=== PATIENT | female | born 1970 | race Caucasian/White ===

== ENCOUNTER 2020-07-16 19:50 | Emergency (ER) | payer BC ==
[2020-07-16 20:05] VITALS: BP 136/72
--- NOTE | 2020-07-16 21:57 | ER Document Report ---
ED Neck/Back Problem - General Chief Complaint: Back Injury Stated Complaint: FELL ON BUTT/NAUSEA/DISSINESS Time Seen by Provider: 07/16/20 21:48 Primary Care Provider: [facility] [Provider Group] - Follow up as needed Mode of Arrival: Ambulatory Information source: Patient - HPI Patient complains to provider of: Pain, Lower back Notes: Patient here with complaints of left buttock and low back pain. The patient states she was jumping rope when she lost her balance and fell backwards and landed on the foot of a dumbbell rack. She complains of pain mainly in the left glutes. She denies any bowel or bladder dysfunction. No blood thinners. No abdominal pain. She had some nausea earlier, this has resolved. No vomiting or diarrhea. No dysuria or hematuria. No chest pain or shortness of breath. No numbness, tingling, weakness. No loss of bowel or bladder dysfunction. No IV drug use. No fevers. No rash. Pain is constant, moderate, worse with sitting and movement, better with certain positions and rest. No other complaints, no other injuries. Past Medical History - Social History Smoking Status: Never Smoker Frequency of alcohol use: None Drug Abuse: None Family History: Reviewed & Not Pertinent Review of Systems - Review of Systems -: Yes All other systems reviewed and negative Physical Exam - Vital signs Vitals: Temp Pulse Resp BP Pulse Ox 97.8 F 72 16 136/72 H 100 07/16/20 20:03 07/16/20 20:03 07/16/20 20:03 07/16/20 20:03 07/16/20 20:03 - Notes Notes: GENERAL: alert, cooperative, nontoxic, no distress. HEAD: normocephalic, atraumatic EYES: conjunctiva pink without discharge, no external redness or swelling. EARS: no external swelling, no external redness NOSE: atraumatic, no external swelling MOUTH/THROAT: mucous membranes moist and pink, posterior pharynx without erythema, swelling, exudate. No trismus or drooling. NECK: soft, supple, full range of motion, no meningismus. CHEST: no distress, lungs clear and equal throughout. No wheezing, rales, rhonchi. CARDIAC: regular rate and rhythm, no murmur, normal capillary refill, normal pulses. No peripheral edema noted. ABDOMEN: soft, nontender, no pusatile mass. BACK: No CVA tenderness. Slight decreased range of motion secondary to low back pain. Tenderness to palpation of the left SI joint and left glutes. No midline tenderness, step-offs or crepitus to the lumbar spine. EXTREMITIES: full range of motion of all extremities. No redness, no swelling. NEURO: alert and oriented A&O x 3, no focal deficits, full range of motion of all extremities. 5 out of 5 flexion and extension of the lower extremities bilaterally. Patellar and Achilles deep tendon reflexes are +2 bilaterally. Normal sensation with no saddle anesthesia. Patient can dorsiflex the great toe s bilaterally. PYSCH: appropriate mood, affect. Patient is cooperative. SKIN: pink, warm, dry, no rash. Course - Re-evaluation Re-evalutation: 07/16/20 23:06 Patient resting comfortably this time. Have gone over results with the patient. Questions answered. Will discharge home. Patient is nontoxic-appearing with stable vitals. Here with complaints of left buttock pain after she was jumping rope, lost her balance and fell. She landed on the foot of a dumbbell rack causing pain. No sign or risk of cauda equina, epidural abscess/bleed, discitis, osteomyelitis, pyelonephritis, AAA. She has some tenderness to palpation of the left gluteus and left hip. She has a nonfocal neurological exam. No deficits. No signs of infection. X-rays of the lumbar spine and the left hip show degenerative changes with no acute fracture. Patient will be discharged home with a prescription for Voltaren and Zanaflex. Instructions to apply ice to the sore area. Follow-up if not better in 1 week, sooner for worsening pain, fever, numbness, tingling, weakness, bowel or bladder dysfunction, or any further concerns. The patient's emergency department workup and current diagnosis were explained to the patient and or family. Follow-up instructions were provided. Medications if prescribed were discussed. Instructions for when to return to the emergency department including specific worrisome symptoms were discussed with the patient and/or family. - Vital Signs Vital signs: Temp Pulse Resp BP Pulse Ox 97.8 F 72 16 136/72 H 100 07/16/20 20:03 07/16/20 20:03 07/16/20 20:03 07/16/20 20:03 07/16/20 20:03 - Laboratory Results Critical Laboratory Results Reviewed: No Critical Results - Radiology Results Critical Radiology Results Reviewed: No Critical Results Discharge - Discharge Clinical Impression: Contusion, buttock Qualifiers: Encounter type: initial encounter Qualified Code(s): S30.0XXA - Contusion of lower back and pelvis, initial encounter Condition: Stable Disposition: HOME, SELF-CARE Instructions: Contusion ([facility]), Ice Packs ([facility]), Low Back Pain ([facility]) Additional Instructions: Take medications as prescribed. Apply ice to the sore area. Follow-up if not better in 1 week, sooner for worsening pain, fever, numbness, tingling, weakness, bowel or bladder dysfunction, or any further concerns. Prescriptions: Diclofenac Sodium [Voltaren 50 Mg Yuval.] 50 mg PO BID #20 tablet. Tizanidine HCl [Zanaflex 4 Mg Tablet] 4 mg PO BID PRN #10 tablet PRN Reason: Referrals: [facility] [Provider Group] - Follow up as needed
--- NOTE | 2020-07-16 22:54 | RADIOLOGY REPORT (SQ) ---
EXAM DESCRIPTION: XR HIP 2 OR MORE VIEWS COMPLETED DATE/TME: 07/16/2020 22:12 CLINICAL HISTORY: 49 years, Female, fall, p0ain COMPARISON: None. NUMBER OF VIEWS: 2 TECHNIQUE: AP pelvis, single view left hip LIMITATIONS: None. FINDINGS: No radiographic evidence for acute fracture or dislocation. Degenerative change of the hips bilaterally. Well-defined sclerotic focus in the intertrochanteric region of the left femur measuring 3.0 x 2.2 cm likely reflects bone island in the absence of cancer history. Phleboliths in the pelvis. IMPRESSION: Degenerative changes. No acute fracture. copyright 2010 [employer]- All Rights Reserved
--- NOTE | 2020-07-16 23:00 | RADIOLOGY REPORT (SQ) ---
EXAM DESCRIPTION: XR LUMBAR SPINE ANTEROPOSTERIOR, LATERAL, AND OBLIQUES COMPLETED DATE/TME: 07/16/2020 22:12 CLINICAL HISTORY: 49 years, Female, fall, pain COMPARISON: None. NUMBER OF VIEWS: 5 TECHNIQUE: 5 views of the lumbar spine were obtained LIMITATIONS: None. FINDINGS: There is no evidence of fracture or subluxation. No pars defect is seen. There is mild marginal osteophyte formation within the lower thoracic spine and at the L2-3 and L3-4 levels. No significant disc space narrowing is seen. IMPRESSION: Mild spondylosis. copyright 2010 [employer]- All Rights Reserved
[2020-07-16] MEDS ORDERED: KETOROLAC TROMETHAMINE INJ/PF 30 MG/1 ML SDV IM ONE (23:21)
--- OUTSIDE RECORDS SUMMARY | 2020-07-16 23:47 | XMS REPORT ---
:1970 Author Organization [facility] Address [facility] [place] [address] [place] [id number] Care Team Providers Name Role Phone Daija WATSON, MS, Mrs Attending Clinician Daija WATSON, MS, Mrs Unavailable Allergies, Adverse Reactions, Alerts This patient has no known allergies or adverse reactions. Medications Ordered Filled Start Stop Current Ordering Indication Dosage Frequency Signature Comments Components Medication Medication Date Date Medication? Clinician (SIG) Name Name Evening Yes qhs [place] Oil 1000 MG Nystatin Yes 1 (Topical) applicatio 520754 n UNIT/GM topically to affected area 2 times per day Bupropion Yes HCl 150 MG Trazodone Yes Take 1 HCl 50 MG tablet (50 mg) by mouth daily at bedtime as needed for sleep Fluconazole Yes Take 1 150 MG tablet (150 mg) by mouth one time, then repeat dose in 4 days. dextroamphe No dextroamph tamine-amph etamine-am etamine ER phetamine 20 mg 24hr ER 20 mg capsule,ext 24hr end release capsule,ex tend release montelukast No montelukas 10 mg t 10 mg tablet tablet nystatin No nystatin 100,000 100,000 unit/gram unit/gram topical topical ointment ointment oxcarbazepi No oxcarbazep ne 300 mg ine 300 mg tablet tablet trazodone No trazodone trazodone No trazodone 50 mg 50 mg tablet tablet bupropion No bupropion HCl XL 150 HCl XL 150 mg 24 hr mg 24 hr tablet, tablet, extended extended release release bupropion No bupropion HCl XL 300 HCl XL 300 mg 24 hr mg 24 hr tablet, tablet, extended extended release release dextroamphe No dextroamph tamine-amph etamine-am etamine 20 phetamine mg tablet 20 mg tablet Biotin 5 MG Yes daily Montelukast Yes Take 1 Sodium 10 tablet (10 MG mg) by mouth daily Bupropion Yes one qam HCl 300 MG Oxcarbazepi Yes 2 qhs ne 300 MG Amphetamine Yes Take 1 -Dextroamph capsule etamine 20 (20 mg) by MG mouth daily in the morning Cyanocobala Yes daily min 100 MCG Crisaborole No 1 2 % 10-21 applicatio 04:00 n :00 topically to affected area 2 times per day Black Cohosh 09-24 (Cimicifuga 04:00 racemosa) :00 160 MG Problems Condition Condition Condition Status Onset Resolution Last Treatin g Comments Name Details Category Date Date Treatment Clinician Date Obesity Obesity Diagnosis Active Droberg, Lili Allergic Allergic Diagnosis Active Droberg, disposition disposition Lili Eruption Eruption Diagnosis Active Droberg, Lili Menopausal Menopausal Diagnosis Active Droberg, flushing flushing Lili Raised TSH Raised TSH Diagnosis Active Droberg, level level Lili Bipolar Bipolar Diagnosis Active Droberg, disorder disorder Lili Disturbance Disturbance Diagnosis Active Drober g, of of Lili attention attention Candidiasis Candidiasis Diagnosis Active Drober g, of skin of skin Lili Adjustment Adjustment Diagnosis Active Droberg, disorder disorder Lili Adult Adult Diagnosis Complet 2019-09-25 [facility] ed 00:00:00 Lili examination examination Procedures Procedure Date / Time Performed Performing Clinician Geoffrey perkins Documentation of current 2019-12-24 00:00:00 Lili Choe medications (procedure) Documentation of current 2019-11-23 00:00:00 Lili Choe medications (procedure) Documentation of current 2019-10-22 00:00:00 Lili Choe medications (procedure) Documentation of current 2019-09-25 00:00:00 Felix Choeca medications (procedure) Depression screening using PHQ-9 2019-03-15 04:00:00 Lottie Choe (Patient Health Questionnaire 9) score Assessment using generalized 2019-03-15 04:00:00 Enedelia Choe anxiety disorder 7 item score Screening for malignant neoplasm of 2019-03-15 04:00:00 Lili Choe vagina Screening for malignant neoplasm of 2019-03-15 04:00:00 Lili Choe breast Laboratory data interpretation 2019-03-15 04:00:00 Argenis Choe cca Documentation of current 2019-03-15 00:00:00 Lili Choe medications (procedure) Documentation of current 2019-03-08 00:00:00 Lili Choe medications (procedure) Hysterectomy Results Test Description Test Time Test Comments Text Results Atomic Results Result Comments SARS-CoV-2 RNA Resp Ql ARABELLA+probe 2020-04-28 00:00:00 Test Item Value Reference Range Comments SARS-CoV-2 RNA Resp Ql ARABELLA+probe Not detected [facility] Case ID: (test code = 49602-3) [id number] Microscopic [id number] 08:33:00 Test Item Value Reference Range Comments Microscopic observation (test code = 90167-6) . [id number] 08:33:00. 2019-03-20 Final [facility] [address] [id number]:2019-03-20 08:33:00Note: 2019-03-20 Final [facility] [place] [address] [place] [address] [id number] 08:33:00Cytologist 2019-03-20 Final [facility] [address] [id number] ICD [id number] 08:33:00Diagnosis ICD code 2019-03-20 [facility] [address] [place] [address] [id number] of hzzvxbkd1636-30-12 08:33:00Statement of adequacy 2019-03-20 Final [facility] [address] [id number] CYTOLOGY [id number] 08:33:00CYTOLOGY REPORT 2019-03-20 Final [facility] [address] [id number] [id number] 04:20:00 Test Item Value Reference Range Comments Nuclear Ab (test code = 8061-4) Negative 0-0 Qlojuidmlgbfvw0616-01-40 21:24:00 Test Item Value Reference Range Comments Interpretation (test code = 548523) Note PDF [id number] 21:18:00 Test Item Value Reference Range Comments PDF Image (test code = 564572) . C reactive izhqgak3858-07-09 20:58:00 Test Item Value Reference Range Comments C reactive protein (test code = 1988-5) 4 mg/L 0-0 Zmgfzwpfiar3827-35-11 20:10:00 Test Item Value Reference Range Comments Thyrotropin (test code = 32998-1) 5.100 uIU/mL 0-0 Thyroxine.ucif5492-51-49 20:10:00 Test Item Value Reference Range Comments Thyroxine.free (test code = 3024-7) 1.41 ng/dL 0-0 Cholesterol.total/Cholesterol.in [id number] 19:49:00 Test Item Value Reference Range Comments Cholesterol.total/Cholesterol.in HDL (test code = 3.3 ratio 0-0 9830-1) Cholesterol.in [id number] 19:49:00 Test Item Value Reference Range Comments Cholesterol.in LDL (test code = 40892-2) 71 mg/dL 0-0 [id number] 19:49:00 Test Item Value Reference Range Comments Cholesterol (test code = 2093-3) 118 mg/dL 0-0 LABORATORY [id number] 19:49:00LABORATORY COMMENT 2019-03-12 Not available [facility] [address] [id number].in VLDL 2019-03-12 19:47:00 Test Item Value Reference Range Comments Cholesterol.in VLDL (test code = 28672-5) 11 mg/dL 0-0 Nwwqcrpuvdru1673-35-88 19:47:00 Test Item Value Reference Range Comments Triglyceride (test code = 2571-8) 55 mg/dL 0-0 Cholesterol.in [id number] 19:45:00 Test Item Value Reference Range Comments Cholesterol.in HDL (test code = 2085-9) 36 mg/dL 0-0 GRANULOCYTES.[id number] 19:45:00 Test Item Value Reference Range Comments GRANULOCYTES.IMMATURE (test code = 82654-7) 0.0 x10E3/uL 0-0 GRANULOCYTES.IMMATURE/100 [id number] 19:45:00 Test Item Value Reference Range Comments GRANULOCYTES.IMMATURE/100 LEUKOCYTES (test code = 0 % 0-0 66182-7) Bvuuuaxjs7101-30-22 19:45:00 Test Item Value Reference Range Comments Basophils (test code = 704-7) 0.0 x10E3/uL 0-0 Slebsshjzde5021-77-59 19:45:00 Test Item Value Reference Range Comments Eosinophils (test code = 711-2) 0.2 x10E3/uL 0-0 Szmwvtcgc0245-84-01 19:45:00 Test Item Value Reference Range Comments Monocytes (test code = 742-7) 0.3 x10E3/uL 0-0 Ytqxpxtizli5277-32-38 19:45:00 Test Item Value Reference Range Comments Lymphocytes (test code = 731-0) 1.5 x10E3/uL 0-0 [id number] 19:45:00 Test Item Value Reference Range Comments Neutrophils (test code = 751-8) 3.0 x10E3/uL 0-0 Basophils/100 ynasemakdn8202-01-32 19:45:00 Test Item Value Reference Range Comments Basophils/100 leukocytes (test code = 706-2) 0 % 0-0 Eosinophils/100 fciqdntiiy9517-29-74 19:45:00 Test Item Value Reference Range Comments Eosinophils/100 leukocytes (test code = 713-8) 4 % 0 -0 Monocytes/100 cjkaknogqc6583-56-38 19:45:00 Test Item Value Reference Range Comments Monocytes/100 leukocytes (test code = 5905-5) 6 % 0- 0 Lymphocytes/100 eeqmuhntgr8950-06-18 19:45:00 Test Item Value Reference Range Comments Lymphocytes/100 leukocytes (test code = 736-9) 30 % 0 -0 Neutrophils/100 oavvarhwnm5829-18-92 19:45:00 Test Item Value Reference Range Comments Neutrophils/100 leukocytes (test code = 770-8) 60 % 0 -0 Yrqwajmre2289-46-99 19:45:00 Test Item Value Reference Range Comments Platelets (test code = 777-3) 189 x10E3/uL 0-0 Erythrocyte distribution jnnlp9911-77-55 19:45:00 Test Item Value Reference Range Comments Erythrocyte distribution width (test code = 788-0) 13.7 % 0-0 Erythrocyte mean corpuscular hemoglobin msubqrbhag4519-35-82 19:45:00 Test Item Value Reference Range Comments Erythrocyte mean corpuscular hemoglobin concentrat 32.5 g/dL 0-0 (test code = 786-4) Erythrocyte mean corpuscular cjsyjxecan9991-34-79 19:45:00 Test Item Value Reference Range Comments Erythrocyte mean corpuscular hemoglobin (test code = 28.8 pg 0-0 785-6) Erythrocyte mean corpuscular [id number] 19:45:00 Test Item Value Reference Range Comments Erythrocyte mean corpuscular volume (test code = 89 fL 0-0 787-2) Xvetrgajqr3486-36-19 19:45:00 Test Item Value Reference Range Comments Hematocrit (test code = 4544-3) 39.7 % 0-0 [id number] 19:45:00 Test Item Value Reference Range Comments Hemoglobin (test code = 718-7) 12.9 g/dL 0-0 Hjyldotsbvrq1889-13-72 19:45:00 Test Item Value Reference Range Comments Erythrocytes (test code = 789-8) 4.48 x10E6/uL 0-0 Ejrruzsilh1208-02-76 19:45:00 Test Item Value Reference Range Comments Leukocytes (test code = 6690-2) 5.0 x10E3/uL 0-0 Cgykfjmiqu0666-26-35 19:45:00Morphology 2019-03-12 Not available [facility] [address] [id number].nucleated/100 ingmoehogg0075-12-98 19:45:00Erythrocytes.nucleated/100 leukocytes 2019-03-12 Not available [facility] [address] [id number] Immature Ksvhm5519-01-02 19:45:00Immature Cells 2019-03-12 Not available [facility] [address] [id number] Assessments Condition Name Status Diagnosis Date Treating Clinici an Candidiasis of skin Active 2019-12-24 20:58:33 Obesity Active 2019-12-24 20:58:42 Disturbance of attention Active 2019-12-24 20:58:37 Adjustment disorder Active 2019-12-25 14:19:53 Panniculitis Active 2019-12-18 16:21:12 Cosmetic surgery Active 2019-12-18 16:21:16 Candidiasis of skin Active 2019-12-24 20:58:33 Obesity Active 2019-12-24 20:58:42 Disturbance of attention Active 2019-12-24 20:58:37 Bipolar disorder Active 2019-11-26 20:41:06 Adjustment disorder Active 2019-12-25 14:19:53 Candidiasis of skin Active 2019-12-24 20:58:33 Obesity Active 2019-12-24 20:58:42 Disturbance of attention Active 2019-12-24 20:58:37 Obesity Active 2019-12-24 20:58:42 Disturbance of attention Active 2019-12-24 20:58:37 Bipolar disorder Active 2019-11-26 20:41:06 Eruption Active 2019-03-15 19:03:31 Raised TSH level Active 2019-03-15 12:23:18 Obesity Active 2019-12-24 20:58:42 Adult health examination Active 2019-09-25 18:34:16 Menopausal flushing Active 2019-03-12 02:10:28 Eruption Active 2019-03-15 19:03:31 Obesity Active 2019-12-24 20:58:42 Allergic disposition Active 2019-03-12 02:09:32 Encounters Start End Encounter Admission Attending Care Care Encounter Date/Time Date/Time Type Type Clinicians Facility Department ID 2019-12-24 2019-12-24 [facility] [id number] 00:00:00 00:00:00 of skin Lili [facility] 2019-12-24 2019-12-18 2019-12-18 Redd [facility] [id number] 00:00:00 00:00:00 [facility] [address] PA: [address] [facility], [address], [place] [address], Ph. 2019-11-23 2019-11-23 [facility] [id number] 00:00:00 00:00:00 of skin Lili [facility] 2019-11-23 2019-10-22 2019-10-22 [facility] [id number] 00:00:00 00:00:00 of skin Lili [facility] [facility] 2019-10-22 2019-09-25 2019-09-25 Ob[facility] [id number] 00:00:00 00:00:00 [facility] 2019-09-25 2019-05-30 2019-05-30 Omaira Choe [facility] [id number] 00:00:00 00:00:00 specified [facility] 2019-05-30 2019-03-15 2019-03-15 Bethanie Choe [facility] [id number] 00:00:00 00:00:00 [facility] 2019-03-15 2019-03-12 2019-03-12 Omaira Choe [facility] [id number] 00:00:00 00:00:00 specified [facility] 2019-03-12 2019-03-08 2019-03-08 Rama Choe [facility] [id number] 00:00:00 00:00:00 flushing [facility] 2019-03-08 Immunizations Ordered Immunization Filled Immunization Date Status Commen ts Refusal Reason Name Name Td (adult), absorbed 2014-06-27 Completed 00:00:00 Assessment and Plan Assessment or Activity Date Comments Care plan 2019-12-24 Date of Encounter: Plan: Letter- Describing t he yeast and the weight trends.Dear Jeanine Willoughby, I am writing on behalf of patient MADI MOYER who has been a patie nt of ours since March 08, 2019. She continues on a steady weight loss s laci that time with a total to date of 10. 4 lbs. She has not had any time during this interval where she has gained weigh t. She continues with diet and exercise to effect weight loss. We do appreciate the consult. Since she has seen you last, sam perkins feel that her skin yeast infection has progressed and will now be treated with oral antifungals as well as topical anti fungal cream. We will continue to monitor and keep you abreast on any changes. If t here is anything else that we may assist w tyrone collaborating in the care and treatme nt plan, please let us know.Warmly, Argenis Choe, MS, ACNP-BCRx for difluc an 150mg x 2 doses. Continue the topical nystatin for the skin yeast infection Follow up with Dr Ortiz for psychother apy as scheduled.Refill add erall as prescribed and will give one re fill.RTC 2moMEDICATIONS: Mult i Vitamin Oral Tablet daily Biotin 5 MG Or al Tablet daily Montelukast Sodium 1 0 MG Oral Tablet Take 1 tablet (10 mg) by mouth daily buPROPion HCl ER (XL) 300 MG O ral Tablet Extended Release 24 Hour one qam OXcarbazepine 300 MG Oral Tablet 2 qhs Adderall XR 20 MG Oral Capsule Extende d Release 24 Hour 1 capsule (20 mg) oral ly daily in the morning Vitamin B12 100 MCG Oral Tablet daily Evening Primro se Oil 1000 MG Oral Capsule qhs Collagen Hydrolysate Powder puts in her coffee N ystatin 868668 UNIT/GM External Oin tment 1 application topically to affecte d area 2 times per day Wellbutrin SR 15 0 MG Oral Tablet Extended Release 12 Hour traZODone HCl 50 MG Oral Tablet 1 tab let (50 mg) orally daily at bedtime as needed Diflucan 150 MG Oral Tablet 1 tab let (150 mg) orally one time Patient follow-up planned and 2020-02-14 Scheduled Appointment for Follow-Up Visit scheduled on 2020-02-14 at 07: 30 with Mrs Lili Choe BRENDA WATSON, M S at [facility], [address] [place] [address], [facility] , [place] Phone: [phone] Care plan 2019-11-23 Date of Encounter: Plan: Refill Adderall XRCo ntinue with psychotherapyContinu e all other meds as outlinedRefill nysta tin cream.Referral to Plastics- chronic ye ast due to fat folds for at least the las t one full year. Consider excess skin reduction due to significant weight l oss. RTC 1mo.REFERRALS: [facility] via Fax and DirectME DICATIONS: Multi Vitamin Oral Tablet daily Biotin 5 MG Oral Tablet daily Mo ntelukast Sodium 10 MG Oral Tablet Take 1 tablet (10 mg) by mouth daily buPROPio n HCl ER (XL) 300 MG Oral Tablet Extended Release 24 Hour one qam OXcarbazepine 30 0 MG Oral Tablet 2 qhs Adderall XR 20 M G Oral Capsule Extended Release 24 Hour 1 capsule (20 mg) orally daily in the morning Vitamin B12 100 MCG Oral Tab let daily Evening [place] Oil 1000 MG Oral Capsule qhs Collagen Hydrolysate Powder puts in her coffee Nystatin 1000 00 UNIT/GM External Ointment 1 applicati on topically to affected area 2 time s per day Wellbutrin SR 150 MG Oral Table t Extended Release 12 Hour traZODone HCl 5 0 MG Oral Tablet 1 tablet (50 mg) orall y daily at bedtime as needed Care plan 2019-10-22 Date of Encounter: Plan: Meds as orderedRTC 1mo fo r follow up Adderall refilled todayConsul t pending with Dr Vanessa Kerr.Call if no reso lution of the skin yeast infection. COn tinue efforts of weight reduction wit h diet and exercise.MEDICATIONS : Multi Vitamin Oral Tablet daily Biotin 5 MG Oral Tablet daily Montelukast So dium 10 MG Oral Tablet Take 1 tablet (10 mg) by mouth daily buPROPion HCl ER (XL) 300 MG Oral Tablet Extended Rele ase 24 Hour one qam OXcarbazepine 300 MG Oral Tablet 2 qhs Adderall XR 20 MG Or al Capsule Extended Release 24 Hour 1 ca psule (20 mg) orally daily in the morning Vitamin B12 100 MCG Oral Tablet daily Ev ening [place] Oil 1000 MG Oral Capsule qhs Collagen Hydrolysate Powder p uts in her coffee Nystatin 188221 UNIT /GM External Ointment 1 application topica lly to affected area 2 times per day Patient follow-up planned and 2019-11-23 Scheduled Appointment for Follow-Up Visit scheduled on 2019-11-23 at 08: 00 with Mrs Lili Choe BRENDA WATSON, M S at [facility], [address] [place] [address], [address] , [place] Phone: [phone] Care plan 2019-09-25 Date of Encounter: Plan: Meds refilled todayContin ue efforts of weight loss with diet and e xercise.We will continue to reach ou t to try to obtain last records from [facility] [place].[facility] tele[facility]otherap [facility].RTC one month.REFERRALS: [facility] via FaxMEDIC ATIONS: buPROPion HCl ER (XL) 300 MG Oral Tablet Extended Release 24 Hour one qam OXcarbazepine 300 MG Oral Tablet 2 qhs Adderall XR 20 MG Oral Capsule Extende d Release 24 Hour 1 capsule (20 mg) oral ly daily in the morning Vitamin B12 100 MCG Oral Tablet daily Evening Primro se Oil 1000 MG Oral Capsule qhs Collagen Hydrolysate Powder puts in her coffee Care plan 2019-03-15 Date of Encounter: Plan: REFERRALS: [facility] via FaxScreening mammogr amPAP sentPsychotherapy- s he is pending an appt to discuss her divor ce and caregiver stress.MEDICATIONS: Eucrisa 2 % External Ointment 1 applicati on topically to affected area 2 time s per day Care plan 2019-08-24 Date of Encounter: Addendum date 2019-08-24 sour ce: Provider: Encounter type [facility] from Office Visit - [id number] (SNOMED- [place]) to Evaluation and management [facility] (procedur - [id number] (SNOMED-CT).
Care plan 2019-03-08 Date of Encounter: Plan: Samples of eurisa gi negro todayLabs return fasting CMP,CBC,TSH, FT4,lipids,DEMETRICE w/reflex, CRPRTC for annual PE/PAPMEDICATIONS: M ontelukast Sodium 10 MG Oral Tablet Take 1 tablet (10 mg) by mouth daily [place] hosh 160 MG Oral Capsule Care plan 2019-08-24 Date of Encounter: Addendum date 2019-08-24 sour ce: Provider: Encounter type romano ed from Office Visit - [id number] (SNOMED- CT) to Evaluation and management of new ou tpatient in office or other outpatient fac ility (procedure) - [id number] (SNOMED-CT) .
Patient follow-up planned and 2020-03-17 Scheduled Appointment for Annual PE on scheduled 2020-03-17 at 07:30 with Mrs Lili Choe BRENDA HURTP, M S at [facility], [address] [place], [place], [id number] [place] [address] Phone: [phone] Patient follow-up planned and 2019-10-23 Scheduled Appointment for Follow-Up Visit scheduled on 2019-10-23 at 08: 00 with Mrs Lili Choe Violet GRUBBS at [facility], [address] [place], [address] , [facility] Phone: [phone] Adult depression screening 2019-05-30 Care goals an d future scheduled assessment procedures: Adult de pression screening assessment Breast - bilateral FFD mammogram 2019-03-15 Care go als and future scheduled screening procedures: Breast - bilateral FFD mammogram screening CBC W Auto Differential panel - 2019-03-12 Tests Pe nding: CBC W Auto Differential Blood panel - Blood Expect ed results on: 2019-03-12 Lipid Panel and Chol/HDL Ratio 2019-03-12 Tests Pen ding: Lipid Panel and Chol/HDL Ratio Expected resul ts on: 2019-03-12 Thyrotropin [Units/volume] in 2019-03-12 Tests Pend ing: Thyrotropin [Units/volume] Serum or Plasma by Detection in Serum or Plasma by Detection limit <= limit <= 0.005 mIU/L 0.005 mIU/L Expecte d results on: 2019-03-12 Thyroxine (T4) free [Mass/volume] 2019-03-12 Tests Pending: Thyroxine (T4) free in Serum or Plasma [Mass/volume] in Ser um or Plasma Expected results on: Nuclear Ab [Presence] in Serum 2019-03-12 Tests Pen ding: Nuclear Ab [Presence] in Serum Expected resul ts on: 2019-03-12 C reactive protein [Mass/volume] 2019-03-12 Tests P ending: C reactive protein in Serum or Plasma [Mass/volume] in Ser um or Plasma Expected results on: Pap Lb, rfx HPV ASCU 2019-03-15 Tests Pending: Pap Lb, rfx HPV ASCU Expected results on: 2019-03-15 COLOGUARD 2019-03-15 Tests Pending: COLOG UARD Expected results on: 2019-03-15 Social History Smoking Status Start Date Stop Date Never Smoker Social History Observation Description Sex Female Vital Signs Vital Name Observation Time Observation Value Comments Height 2019-12-18 00:00:00 65 [in_i] BMI (Body Mass Index) 2019-12-18 00:00:00 36.1 kg/m2 Body Weight 2019-12-18 00:00:00 217 [lb_av] Respiratory rate 2019-12-24 13:45:00 15 /min Pulse 2019-12-24 13:45:00 74 /min Systolic BP 2019-12-24 13:45:00 135 mm[Hg] Diastolic BP 2019-12-24 13:45:00 87 mm[Hg] Temperature 2019-12-24 13:45:00 36.56 Lucinda Height 2019-12-24 13:45:00 166.37 cm O2 Saturation 2019-12-24 13:45:00 97 % Weight 2019-12-24 13:45:00 98.25 kg BMI (Body Mass Index) 2019-12-24 13:44:59 35.5 kg/m2 Height 2019-11-23 05:04:00 166.37 cm Weight 2019-11-23 05:04:00 98.43 kg BMI (Body Mass Index) 2019-11-23 05:03:59 35.56 kg/m2 Systolic BP 2019-10-22 12:09:00 mm[Hg] mm[Hg] Diastolic BP 2019-10-22 12:09:00 mm[Hg] mm[Hg] Height 2019-10-22 12:09:00 166.37 cm Weight 2019-10-22 12:09:00 98.43 kg BMI (Body Mass Index) 2019-10-22 12:08:59 35.56 kg/m2 Height 2019-09-25 11:12:00 166.37 cm Weight 2019-09-25 11:12:00 98.88 kg BMI (Body Mass Index) 2019-09-25 11:11:59 35.72 kg/m2 Pulse 2019-03-15 04:34:00 74 /min Systolic BP 2019-03-15 04:34:00 124 mm[Hg] Diastolic BP 2019-03-15 04:34:00 70 mm[Hg] Height 2019-03-15 04:34:00 166.37 cm O2 Saturation 2019-03-15 04:34:00 98 % Weight 2019-03-15 04:34:00 102.97 kg BMI (Body Mass Index) 2019-03-15 04:33:59 37.2 kg/m2 Pulse 2019-03-08 11:07:00 68 /min Systolic BP 2019-03-08 11:07:00 124 mm[Hg] Diastolic BP 2019-03-08 11:07:00 72 mm[Hg] Height 2019-03-08 11:07:00 166.37 cm O2 Saturation 2019-03-08 11:07:00 97 % Weight 2019-03-08 11:07:00 103.42 kg BMI (Body Mass Index) 2019-03-08 11:06:59 37.36 kg/m2 Hospital Discharge Instructions 1. Panniculitis 2. Cosmetic surgery Discussion Note: None recorded. Patient educational handouts: Noinformation available.
== END 2020-07-16 23:30 | disposition home or self-care (01) ==
LOC: ER 19:50
DX: S30.0XXA Contusion of lower back and pelvis, initial encounter (principal); M54.5 Low back pain; W19.XXXA Unspecified fall, initial encounter; W21.89XA Striking against or struck by other sports equipment, initial encounter; Y93.56 Activity, jumping rope; M47.9 Spondylosis, unspecified
CPT/HCPCS: 99284; 96372; 73502; 72110; J1885